=== PATIENT | male | born 1960 | race Caucasian/White ===

== ENCOUNTER 2017-07-16 07:07 | Day surgery (SDC) | payer BC ==
[~2017-07-16 07:07] MED LIST: Lactated Ringers 1,000 ML IV SCH
[2017-07-16] MEDS ORDERED: Propofol 200 MG/20 ML SDV ONE ×2 (08:55→09:10)
[2017-07-16] MEDS ORDERED: fentaNYL 100 MCG/2 ML SDV ONE (08:55)
[2017-07-16] MEDS ORDERED: Midazolam 1 MG/ML 2 ML SDV ONE (08:55)
[2017-07-16 11:18] VITALS: BP 121/84
--- NOTE | 2017-07-16 14:39 | OR ---
DATE OF SURGERY: 07/16/2017. REFERRING PROVIDER: Yoko Shahid PA-C. PREOPERATIVE DIAGNOSIS: Screening colonoscopy. This is the patient's 1st colonoscopy. There is no known family history of colon cancer or colon polyps. POSTOPERATIVE DIAGNOSES: 1. Two polyps removed using hot snare. a. 6 mm polyp at 80 cm. b. 8 mm sessile polyp at 70 cm, removed with hot snare. 2. Mild diffuse diverticulosis. 3. Redundant colon. PROCEDURE: Colonoscopy with polypectomy x2 using hot snare. SURGEON: Alonso Lezama M.D. ANESTHESIA: Monitored anesthesia care. BOWEL PREP: Good. Tomy is a 56-year-old male was brought to the endoscopy suite after discussing risks and benefits of the procedure. Informed consent was obtained for conscious sedation and colonoscopy with or without biopsy and/or polypectomy. We also discussed possibility of missed lesions. Pre-procedure exam was unremarkable. IV, oxygen, and monitors were placed. The patient was placed in the left lateral decubitus position. Sedation was administered and a digital rectal exam was performed which was unremarkable. Colonoscope was passed into the rectum and slowly advanced all the way to the cecum. Cecum was viewed and photographed. The colonoscope was slowly withdrawn and the mucosa was closed observed in a direct circumferential manner. The ascending colon was remarkable for 6 mm polyp at 80 cm, removed with hot snare. The transverse colon was remarkable for 8 mm sessile polyp at 70 cm removed with hot snare. The colon was noted to have some diffuse mild diverticulosis, not acutely inflamed. The colon was also redundant especially in the sigmoid area. The descending colon was unremarkable. The sigmoid colon was unremarkable. Retroflexion was performed and rectal mucosa was unremarkable. Scope was removed. The patient tolerated the procedure well. The patient was monitored until that baseline status. Discharge instructions were reviewed and the patient was discharged in good condition. COMPLICATIONS: None. TOTAL TIME: 24 minutes. ESTIMATED BLOOD LOSS: Less than 1 mL. RECOMMENDATIONS/FOLLOW-UP: We will await results of path report to determine ideal followup interval. I would like to thank Yoko Shahid for this referral. DMB: 07/16/2017 09:47:32 MODL: 07/16/2017 13:59:40 /[id number] CHEMA
== END 2017-07-16 10:35 | disposition home or self-care (01) ==
LOC: VM.SDS 07:07
PROVIDERS: ATTEND Family Medicine
DX: Z12.11 Encounter for screening for malignant neoplasm of colon (principal); D12.2 Benign neoplasm of ascending colon; D12.3 Benign neoplasm of transverse colon; K57.30 Diverticulosis of large intestine without perforation or abscess without bleeding; Q43.8 Other specified congenital malformations of intestine; G89.29 Other chronic pain; M54.5 Low back pain; E66.9 Obesity, unspecified; Z87.891 Personal history of nicotine dependence; Z79.899 Other long term (current) drug therapy
CPT/HCPCS: 45385; J2250; J2704; J3010; J7120

== ENCOUNTER 2019-12-29 05:38 | Emergency (ER) | payer BC ==
[2019-12-29] MEDS: Nitroglycerin 0.4 MG Tab.SL SL PRN ×2 (05:48→05:57)
[2019-12-29] MEDS ORDERED: Aspirin 81 MG Tab.Chew PO ONE (05:49)
--- NOTE | 2019-12-29 05:56 | EDM.PDOC ---
ED HPI GENERAL MEDICAL PROBLEM - General Chief Complaint: Chest Pain Stated Complaint: chest pain Time Seen by Provider: 12/29/19 05:41 Source of Information: Reports: Patient History Limitations: Reports: No Limitations - History of Present Illness INITIAL COMMENTS - FREE TEXT/NARRATIVE: 59-year-old white male who presents today with chief complaint of midsternal chest pain about 8 out of 10 with radiation in the left arm patient states about 430 this morning that woke him up out of bed with a sharp pressure type pain he tried to give it a little bit see if it would go away and with it not he presented to the ER. Patient denies any nausea vomiting shortness of breath diaphoresis lightheadedness dizziness says the pain has been constant over the last hour has not let up any. He denies any prior coronary artery disease or any cardiac issues or cardiac work-up. 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: Aspirin (Took a baby aspirin yesterday morning part of his daily routine) Middle Chest Pain Score (Numeric/FACES): 8 - Related Data Allergies Allergy/AdvReac Type Severity Reaction Status Date / Time No Known Allergies Allergy Verified 07/16/17 07:33 Home Meds: Home Meds Ibuprofen 400 mg PO Q4H PRN 07/13/17 [History] Naproxen Sodium [Aleve] 220 - 440 mg PO DAILY PRN 07/13/17 [History] Acetaminophen [Tylenol Extra Strength] 1,000 mg PO Q6H PRN 07/16/17 [History] Past Medical History - Past Health History Medical/Surgical History: Denies Medical/Surgical History HEENT History: Reports: None Cardiovascular History: Reports: None Respiratory History: Reports: None Gastrointestinal History: Reports: None Genitourinary History: Reports: None Musculoskeletal History: Reports: Back Pain, Chronic Neurological History: Reports: None Psychiatric History: Reports: None Endocrine/Metabolic History: Reports: Obesity/BMI 30+ Hematologic History: Reports: None Immunologic History: Reports: None Oncologic (Cancer) History: Reports: None Dermatologic History: Reports: None - Past Surgical History Head Surgeries/Procedures: Reports: None HEENT Surgical History: Reports: None Cardiovascular Surgical History: Reports: None Musculoskeletal Surgical History: Reports: Other (See Below) Other Musculoskeletal Surgeries/Procedures:: surgery to R leg from infection Social & Family History - Tobacco Use Smoking Status *Q: Former Smoker Used Tobacco, but Quit: Yes Month/Year Tobacco Last Used: 2012 ED ROS GENERAL - Review of Systems Review Of Systems: See Below Constitutional: Reports: No Symptoms HEENT: Reports: No Symptoms Respiratory: Reports: No Symptoms Cardiovascular: Reports: Chest Pain. Denies: Blood Pressure Problem, Claudication, Dyspnea on Exertion, Edema, Lightheadedness, Orthopnea, Palpitations, PND, Syncope Endocrine: Reports: No Symptoms GI/Abdominal: Reports: No Symptoms : Reports: No Symptoms Musculoskeletal: Reports: No Symptoms Skin: Reports: No Symptoms Neurological: Reports: No Symptoms. Denies: Confusion, Dizziness, Headache, Syncope Psychiatric: Reports: No Symptoms. Denies: Anxiety Hematologic/Lymphatic: Reports: No Symptoms ED EXAM, GENERAL - Physical Exam Exam: See Below Exam Limited By: No Limitations General Appearance: Alert, WD/WN, No Apparent Distress Nose: Normal Inspection, Normal Mucosa, No Blood Throat/Mouth: Normal Inspection, Normal Lips, Normal Teeth, Normal Gums, Normal Oropharynx, Normal Voice, No Airway Compromise Neck: Normal Inspection, Supple, Non-Tender, Full Range of Motion. No: Carotid Bruit Respiratory/Chest: No Respiratory Distress, Lungs Clear, Normal Breath Sounds, No Accessory Muscle Use, Chest Non-Tender Cardiovascular: Normal Peripheral Pulses, Regular Rate, Rhythm, No Edema, No Gallop, No JVD, No Murmur, No Rub GI/Abdominal: Normal Bowel Sounds, Soft, Non-Tender, No Organomegaly, No Distention Extremities: Normal Inspection, Normal Range of Motion, Non-Tender, No Pedal Edema, Normal Capillary Refill Neurological: Alert, Oriented, CN II-XII Intact, Normal Cognition, Normal Gait, No Motor/Sensory Deficits Psychiatric: Normal Affect, Normal Mood Skin Exam: Warm, Dry, Intact, Normal Color, No Rash Course - Vital Signs Text/Narrative:: CBC BMP coags troponin EKG chest x-ray EKG reveals normal sinus rhythm no acute ST elevation or depression noted he has good R wave progression aspirin and nitro given p.o. Patient was rechecked states he feels better after the nitro his pain is now about 3 out of 10 troponin is noted to be within normal limits but secondary to the patient's history of presentation family history of coronary artery disease he wishes to be seen and further evaluated for his chest pain and I agree with this. [facility] was called at [phone] Bell hospitalist will accept the patient at [phone] she concurs and recommends as well that we start a heparin drip with bolus Last Recorded V/S: Last Vital Signs Temp 36.0 C L 12/29/19 05:38 Pulse 73 12/29/19 06:40 Resp 12 12/29/19 06:40 BP 107/71 12/29/19 06:40 Pulse Ox 97 12/29/19 06:40 - Orders/Labs/Meds Orders: Active Orders 24 hr Category Date Time Status EKG Documentation Completion [RC] STAT Care 12/29/19 05:49 Active Labs: Laboratory Tests 12/29/19 12/29/19 12/29/19 Range/Units 05:55 05:55 05:55 WBC (4.0-10.0) x10^3/uL RBC (4.5-6.0) x10^6/uL Hgb (14.0-18.0) g/dL Hct (40.0-52.0) % MCV (78.0-93.0) fL MCH (26.0-32.0) pg MCHC (32.0-36.0) g/dL RDW Coeff of Jenise (10.0-15.0) % Plt Count (130-400) x10^3/uL Neut % (Auto) (50.0-80.0) % Lymph % (Auto) (25.0-50.0) % [place] % (Auto) (2.0-11.0) % Eos % (Auto) (0.0-4.0) % Baso % (Auto) (0.2-1.2) % PT 10.4 (9.5-12.3) SEC INR 1.0 L (2.0-3.5) APTT 27.0 (25.6-32.8) SEC Sodium 139 (136-145) mmol/L Potassium 3.9 (3.5-5.1) mmol/L Chloride 105 (98-107) mmol/L Carbon Dioxide 22 (21-32) mmol/L Anion Gap 15.9 (10-20) mmol/L BUN 12 (7-18) mg/dL Creatinine 1.1 (0.70-1.30) mg/dL Est Cr Clr Drug Dosing 76.06 mL/min Estimated GFR (MDRD) > 60 Glucose 122 H (74-106) mg/dL Calcium 8.2 L (8.5-10.1) mg/dL Troponin I 0.039 (<=0.056) ng/mL 12/29/19 Range/Units 06:10 WBC 7.6 (4.0-10.0) x10^3/uL RBC 5.27 (4.5-6.0) x10^6/uL Hgb 14.8 (14.0-18.0) g/dL Hct 43.0 (40.0-52.0) % MCV 81.6 (78.0-93.0) fL MCH 28.1 (26.0-32.0) pg MCHC 34.4 (32.0-36.0) g/dL RDW Coeff of Jenise 14.2 (10.0-15.0) % Plt Count 227 (130-400) x10^3/uL Neut % (Auto) 57.8 (50.0-80.0) % Lymph % (Auto) 31.4 (25.0-50.0) % [place] % (Auto) 6.6 (2.0-11.0) % Eos % (Auto) 3.8 (0.0-4.0) % Baso % (Auto) 0.4 (0.2-1.2) % PT (9.5-12.3) SEC INR (2.0-3.5) APTT (25.6-32.8) SEC Sodium (136-145) mmol/L Potassium (3.5-5.1) mmol/L Chloride (98-107) mmol/L Carbon Dioxide (21-32) mmol/L Anion Gap (10-20) mmol/L BUN (7-18) mg/dL Creatinine (0.70-1.30) mg/dL Est Cr Clr Drug Dosing mL/min Estimated GFR (MDRD) Glucose (74-106) mg/dL Calcium (8.5-10.1) mg/dL Troponin I (<=0.056) ng/mL Meds: Medications Discontinued Medications Generic Name Dose Route Start Last Admin Trade Name Freq PRN Reason Stop Dose Admin Aspirin 324 mg 12/29/19 05:49 12/29/19 05:47 Aspirin PO 12/29/19 05:50 324 mg ONETIME ONE Administration Heparin Sodium (Porcine) 426,376 units 12/29/19 06:53 12/29/19 07:33 Heparin Sodium IVPUSH 12/29/19 06:54 Not Given .BOLUS ONE Heparin Sodium (Porcine) Confirm 12/29/19 07:15 12/29/19 07:13 Heparin Sodium Administered 12/29/19 07:16 4,000 units Dose Administration 5,000 units .ROUTE .STK-MED ONE Heparin Sodium/Sodium Chloride 25,000 units in 500 mls @ 0.4 mls/hr 12/29/19 07:00 12/29/19 07:16 Heparin 25,000 Units In 1/2 Ns 500 Ml IV 20 units/hr TITRATE RUSS 0.4 mls/hr Administration Protocol 20 UNITS/HR Heparin Sodium/Sodium Chloride Confirm 12/29/19 07:15 12/29/19 07:32 Heparin 25,000 Units In 1/2 Ns 500 Ml Administered 12/29/19 07:16 Not Given Dose 500 mls @ as directed .ROUTE .STK-MED ONE Nitroglycerin 0.4 mg 12/29/19 05:49 12/29/19 05:57 Nitrostat SL 0.4 mg Q5M PRN Administration Chest Pain Nitroglycerin 0.25 gm 12/29/19 07:01 Nitro-Bid 2% TOP 12/29/19 07:02 ONETIME ONE Departure - Departure Time of Disposition: 06:50 Disposition: DC/Tfer to Acute Hospital 02 Reason for Transfer *Q: Other (Heparin drip started and transferred for further evaluation) Condition: Good Clinical Impression: Chest pain Referrals: PCP,Unobtain [Ordering Only Provider] - Forms: ED Department Discharge, Interfacility Transfer EMTALA Sepsis Event Note (ED) - Evaluation Sepsis Screening Result: No Definite Risk - Focused Exam Vital Signs: Vital Signs Temp Pulse Resp BP BP Pulse Ox 12/29/19 06:40 73 12 107/71 97 12/29/19 05:57 129/86 12/29/19 05:52 100 20 126/89 96 12/29/19 05:48 152/100 H 12/29/19 05:38 36.0 C L 81 22 H 152/100 H 100 - Problem List & Annotations (1) Chest pain SNOMED Code(s): 28849854 Code(s): R07.9 - CHEST PAIN, UNSPECIFIED Status: Acute - My Orders Last 24 Hours: My Active Orders 12/29/19 05:49 EKG Documentation Completion [RC] STAT - Assessment/Plan Last 24 Hours: My Active Orders 12/29/19 05:49 EKG Documentation Completion [RC] STAT
[2019-12-29 06:40] LABS: ANION GAP 15.9 mmol/L (10-20); CHLORIDE,CL 105 mmol/L (98-107); SODIUM,NA 139 mmol/L (136-145)
[2019-12-29 06:47] VITALS: BP 107/71; PULSE 73
[2019-12-29] MEDS ORDERED: Heparin Sodium 5,000 Units/ML Vial IVPUSH ONE (06:53)
[2019-12-29] MEDS ORDERED: Heparin Sodium/0.45% NaCl 25,000 UNITS/500 ML BAG IV SCH (07:00)
[2019-12-29] MEDS ORDERED: Nitroglycerin 2% Oint 1 GM UD Packet TOP ONE (07:01)
[2019-12-29] MEDS ORDERED: Heparin Sodium 5,000 Units/ML Vial ONE (07:15)
[2019-12-29] MEDS ORDERED: Heparin Sodium/0.45% NaCl 500 ML ONE (07:15)
--- NOTE | 2019-12-29 08:04 | CR ---
[id number] RAD/RAD Chest PA or AP 1V EXAM: RAD Chest PA or AP 1V INDICATION: CHEST PAIN. COMPARISON: None. DISCUSSION: Cardiomediastinal silhouette is normal in size and contour. No infiltrate, effusion, pneumothorax, or edema. IMPRESSION: No acute cardiopulmonary abnormality. Toni Paul DO 12/29/19 0803 Thank you for allowing us to participate in the care of your patient.
== END 2019-12-29 07:40 | disposition short-term general hospital (02) ==
LOC: VM.ED 05:38
DX: R07.2 Precordial pain (principal); E66.9 Obesity, unspecified; Z68.32 Body mass index [BMI] 32.0-32.9, adult
CPT/HCPCS: 36415; 71045; 80048; 84484; 85025; 85610; 85730; 93005; 96365; 99284; 99285; A9270; J1644

== ENCOUNTER 2021-08-19 14:29 | Emergency (ER) | payer BC ==
[2021-08-19] MEDS ORDERED: Sodium Chloride 0.9% 10 ML Syringe FLUSH PRN (14:41)
[2021-08-19 15:16] LABS: PTT,PARTIAL THROMBOPLSTIN TIME 24.1 SEC (20.5-30.9)
[2021-08-19 15:22] LABS: ANION GAP 11.8 mmol/L (5-15); CHLORIDE,CL 105 mmol/L (98-107); SODIUM,NA 138 mmol/L (136-145)
[2021-08-19] MEDS ORDERED: Nitroglycerin 0.4 MG Tab.SL SL ONE ×3 (15:35→15:36)
[2021-08-19] MEDS ORDERED: Aspirin 81 MG Tab.Chew PO ONE (15:35)
[2021-08-19 15:37] LABS: CORONAVIRUS COVID-19 NAA NEGATIVE (NEGATIVE)
[2021-08-19 15:38] LABS: RESPIRATORY SYNCYTIAL VIR NAA NEGATIVE (NEGATIVE)
[2021-08-19] MEDS ORDERED: Heparin Sodium 5,000 Units/ML Vial IVPUSH ONE (15:41)
[2021-08-19] MEDS ORDERED: Heparin Sodium/0.45% NaCl 25,000 UNITS/500 ML BAG IV SCH ×2 (15:45→16:05)
[2021-08-19] MEDS ORDERED: Nitroglycerin 2% Oint 1 GM UD Packet TOP ONE (15:53)
[2021-08-19 16:32] VITALS: BP 117/80; PULSE 87
== END 2021-08-19 16:59 | disposition short-term general hospital (02) ==
LOC: VM.ED 14:29
DX: I24.9 Acute ischemic heart disease, unspecified (principal); E66.9 Obesity, unspecified; Z68.34 Body mass index [BMI] 34.0-34.9, adult; Z79.899 Other long term (current) drug therapy; Z20.822 Contact with and (suspected) exposure to COVID-19
CPT/HCPCS: 0241U; 71045; 80053; 83735; 84100; 84484; 85025; 85379; 85610; 85730; 86140; 93005; 93010; 96365; 96376; 99284; 99285-25; A9270-GY; J1644

== ENCOUNTER 2023-08-27 09:30 | Day surgery (SDC) | payer BC ==
[2023-08-27] MEDS: Lactated Ringers 1,000 ML IV SCH (09:47)
[2023-08-27] MEDS ORDERED: Propofol 200 MG/20 ML SDV ONE (11:20)
[2023-08-27] MEDS ORDERED: fentaNYL 100 MCG/2 ML SDV ONE (11:20)
[2023-08-27 12:29] VITALS: PULSE 68
[2023-08-27 12:46] VITALS: BP 121/80
== END 2023-08-27 13:25 | disposition home or self-care (01) ==
LOC: VM.SDS 09:30
PROVIDERS: ATTEND Family Medicine
DX: D12.6 Benign neoplasm of colon, unspecified (principal); I25.10 Atherosclerotic heart disease of native coronary artery without angina pectoris; I10 Essential (primary) hypertension; K63.5 Polyp of colon; E66.9 Obesity, unspecified; G47.33 Obstructive sleep apnea (adult) (pediatric); E78.5 Hyperlipidemia, unspecified; Z79.899 Other long term (current) drug therapy; Z68.34 Body mass index [BMI] 34.0-34.9, adult; Z87.891 Personal history of nicotine dependence; Z86.010 Personal history of colon polyps
CPT/HCPCS: 00811; J2704; J3010; J7120